=== PATIENT | male | born 1980 | race Caucasian/White ===

== ENCOUNTER 2017-05-15 16:08 | Emergency (ER) | payer OTHER ==
[2017-05-15] MEDS ORDERED: LIDOCAINE 2%/EPI 1:100,000 20 ML VIAL. IJ ONE (17:15)
[2017-05-15] MEDS ORDERED: DIPHTH,PERTUSS(ACELL),TET TOX 0.5 ML DISP.SYRIN. VAX IM ONE (17:45)
--- NOTE | 2017-05-15 17:54 | ED.ADGEN ---
Past History Past Medical History: No Pertinent History Past Surgical History: No Surgical History Alcohol Use: None Drug Use: None Adult General Chief Complaint Chief Complaint " I got this cut at work.. I said I would let him know when to move the metal we were working with... but he got ahead me.. and it shaved off a chunk of skin on this (Rt.index) finger.. we could not get the bleeding to stop..." HPI HPI Patient is a 36 year old male employee of [employer] who presents with above hx and avulsion laceration of Rt. index finger pad- 3cm x 1 cm. Distal neurovascular intact. Pt. does not remember last tetanus. No hx of depression. No history of recent travel. No history of ill contacts. Patient is right-hand dominant. Review of Systems Review of Systems Constitutional: Denies fever or chills [] Eyes: Denies change in visual acuity, redness, or eye pain [] HENT: Denies nasal congestion or sore throat [] Respiratory: Denies cough or shortness of breath [] Cardiovascular: No additional information not addressed in HPI [] GI: Denies abdominal pain, nausea, vomiting, bloody stools or diarrhea [] : Denies dysuria or hematuria [] Musculoskeletal: Denies back pain or joint pain [] Integument: Denies rash or skin lesions []complaints of evulsion laceration right index finger pad Neurologic: Denies headache, focal weakness or sensory changes [] Endocrine: Denies polyuria or polydipsia [] All other systems were reviewed and found to be within normal limits, except as documented in this note. Family History Family History Noncontributory Current Medications Current Medications Current Medications Medications (Trade) Dose Ordered Sig/Cj Start Time Stop Time Status Last Admin Dose Admin Bupivacaine HCl (Sensorcaine-Mpf 0.25%) 10 ml STK-MED ONCE 05/15/17 18:16 05/15/17 18:17 DC Diphtheria/ Tetanus/Acell Pertussis (Boostrix) 0.5 ml ONCE ONCE 05/15/17 17:45 05/15/17 18:18 DC 05/15/17 18:20 0.5 ML Gelatin (Gelfoam Size 12-7mm) 1 each STK-MED ONCE 05/15/17 18:16 05/15/17 18:17 DC Lidocaine HCl 20 ml STK-MED ONCE 05/15/17 18:17 05/15/17 18:18 DC Lidocaine/ Epinephrine (Xylocaine 2%-Epi 1:100,000) 20 ml 1X ONCE 05/15/17 17:15 05/15/17 17:16 DC Allergies Allergies Allergies Coded Allergies Type Severity Reaction Last Updated Verified Latex, Natural Rubber Allergy Unknown 05/15/17 Yes Physical Exam Physical Exam Constitutional: Well developed, well nourished, in moderate distress, non-toxic appearance. [] HENT: Normocephalic, atraumatic, bilateral external ears normal, oropharynx moist, no oral exudates, nose normal. [] Eyes: PERRLA, EOMI, conjunctiva normal, no discharge. [] Neck: Normal range of motion, no tenderness, supple, no stridor. [] Cardiovascular:Heart rate regular rhythm, no murmur [] Lungs & Thorax: Bilateral breath sounds equal apex auscultation [] Abdomen: Bowel sounds normal, soft, no tenderness, no masses, no pulsatile masses. [] Skin: Warm, dry, no erythema, no rash. [Laceration as per history of present illness Back: No tenderness, no CVA tenderness. [] Extremities: No tenderness, no cyanosis, no clubbing, ROM intact, no edema. [] Neurologic: Alert and oriented X 3, normal motor function, normal sensory function, no focal deficits noted. [] Psychologic: Affect normal, judgement normal, mood normal. [] Current Patient Data Vital Signs Vital Signs Date Time Temp Pulse Resp B/P (MAP) Pulse Ox O2 Delivery O2 Flow Rate FiO2 05/15/17 19:05 70 16 122/70 (87) 98 Room Air 05/15/17 16:10 98.4 EKG EKG [] Radiology/Procedures Radiology/Procedures [] Course & Med Decision Making Course & Med Decision Making Pertinent Labs and Imaging studies reviewed. (See chart for details) Procedure note- patient received a digital block of Sensorcaine and lidocaine. Patient then scrubbed finger with surgical scrub brush to remove residual machine oil and dirt. I reirrigated and cleaned index finger. Betadine to wound. An re-irrigated.. Repeat irrigated in range of motion. Small amount Polysporin applied to wound. Application of Gelfoam dressing applied. Patient to leave dressing in place for the next 2-3 days. Patient to remove the dressing immediately if it becomes wet or dirty. Patient follow-up with primary care and work comp. Patient take Tylenol and ibuprofen for pain. Patient return if any concerns. [] Final Impression Final Impression 1. Abrasion/Laceration[] Rt. index finger. Problems: Dragon Disclaimer Dragon Disclaimer This electronic medical record was generated, in whole or in part, using a voice recognition dictation system. RAMONE RENAE MD May 15, 2017 17:54
[2017-05-15] MEDS ORDERED: GELATIN SPONGE SIZE 12-7MM SPONGE. ONE (18:16)
[2017-05-15] MEDS ORDERED: BUPIVACAINE MPF 0.25% 10 ML VIAL. ONE (18:16)
[2017-05-15] MEDS ORDERED: LIDOCAINE 1% Multi-Dose 20 ML VIAL. ONE (18:17)
[2017-05-15 19:05] VITALS: BP 122/70
== END 2017-05-15 19:12 | disposition home or self-care (01) ==
LOC: ER 16:08
DX: S61.310A Laceration without foreign body of right index finger with damage to nail, initial encounter (principal); Z91.040 Latex allergy status; W45.8XXA Other foreign body or object entering through skin, initial encounter; Y93.89 Activity, other specified; Y99.8 Other external cause status; Y92.89 Other specified places as the place of occurrence of the external cause
CPT/HCPCS: 64450; 90471; 90715; 99284-25